=== PATIENT | male | born 1990 | race African-American/Black ===

== ENCOUNTER 2016-09-11 12:07 | Emergency (ER) | payer MEDICAID ==
[~2016-09-11 12:07] MED LIST: BACTRIM DS TAB1 EAC2 PO; NO HOME MEDS; ZOFRAN ODT4 MG PO
[2016-09-11] MEDS ORDERED: PREDNISONE20 M1 PO (14:16)
== END 2016-09-11 14:28 ==
LOC: EDMED 12:07
DX: T78.40XA Allergy, unspecified, initial encounter (principal); F41.9 Anxiety disorder, unspecified; F17.210 Nicotine dependence, cigarettes, uncomplicated; X58.XXXA Exposure to other specified factors, initial encounter
CPT/HCPCS: J2060; J2930; J7030

== ENCOUNTER 2016-09-16 01:11 | Emergency (ER) | payer MEDICAID ==
[~2016-09-16 01:11] MED LIST changes: +PREDNISONE20 M1 PO
[2016-09-16 02:05] LABS: IMMATURE GRANULOCYTES ABSOLUTE 0.07 tho/cmm (0-0.03); IMMATURE GRANULOCYTES PERCENT 0.7 % (0-0.3); LYMPH % 8.5 % (20-45); LYMPH ABSOLUTE COUNT 0.8 tho/cmm (0.8-4.5); MCH (MEAN CORPUSCULAR HGB) 31.5 pg (28.0-32.0); MCHC MEAN CORPUSCULAR HGB CONC 34.9 % (32.0-36.0); MCV (MEAN CELL VOLUME) 90.3 fl (82.0-96.0); MEAN PLATELET VOLUME 9.5 cmc (9.4-12.4); MONO % 4.9 % (0-12); MONOCYTE ABSOLUTE COUNT 0.5 tho/cmm (0.0-1.2); NEUTROPHIL ABSOLUTE COUNT 8.1 tho/cmm (1.6-8.0); NEUTROPHIL-AUTOMATED 8.1 tho/cmm (1.6-8.0); NEUTROPHILS % 85.9 % (40-80); PLATELET COUNT 197 tho/cmm (150-450); RED BLOOD COUNT 4.76 mil/cmm (4.40-5.70); RED CELL DISTRIBUTION WIDTH 14.3 % (12.4-16.4); WHITE BLOOD COUNT 9.4 tho/cmm (4.0-10.0)
[2016-09-16 02:19] LABS: ALB/GLOB RATIO 0.8 (0.8-2.0); ALBUMIN 3.7 g/dl (3.5-5.0); ALCOHOL (ETOH) 256 mg/dl (<10); ALKALINE PHOSPHATASE 83 U/L (33-138); ALT/SGPT 30 U/L (12-78); ANION GAP 17 mmol/L (0-20); AST/SGOT 20 U/L (10-40); BILIRUBIN,TOTAL 0.2 mg/dl (0.0-1.5); BLOOD UREA NITROGEN 10 mg/dl (6-24); CALCIUM 8.6 mg/dl (8.5-10.5); CARBON DIOXIDE-VENOUS 26 mmol/L (22-32); CHLORIDE 104 mmol/l (96-110); CREATININE 0.86 mg/dl (0.60-1.30); GLUCOSE 133 mg/dL (70-110); POTASSIUM 3.8 mmol/L (3.7-5.1); SODIUM 143 mmol/L (135-145); eGFR VALUE FOR BLACK >90 mL/Min
[2016-09-16 02:32] LABS: MAGNESIUM 2.4 mg/dl (1.8-2.6)
[2016-09-16 02:34] LABS: TSH-THYROID STIMULATING HORM. 0.35 uIU/ml (0.40-3.80)
[2016-09-16 02:40] LABS: URINE BILIRUBIN NEGATIVE (NEG); URINE BLOOD NEGATIVE (NEG); URINE GLUCOSE (UA) NEGATIVE (NEG); URINE KETONE NEGATIVE (NEG); URINE LEUKOCYTE ESTERASE NEGATIVE (NEG); URINE NITRITE NEGATIVE (NEG); URINE PROTEIN NEGATIVE (NEG)
[2016-09-16 02:48] LABS: URINE APPEARANCE CLEAR; URINE COLOR PALE YELLOW
== END 2016-09-16 06:00 ==
LOC: EDMED 01:11
PROVIDERS: Emergency Medicine
DX: F10.129 Alcohol abuse with intoxication, unspecified (principal); F41.0 Panic disorder [episodic paroxysmal anxiety]; R07.89 Other chest pain; Y90.8 Blood alcohol level of 240 mg/100 ml or more
CPT/HCPCS: G0480; J7030